=== PATIENT | female | born 1950 | race Caucasian/White ===

== ENCOUNTER 2017-07-14 08:45 | Inpatient (IN) | payer MEDICARE ==
--- NOTE | 2017-07-14 09:09 | RAD ---
PORTABLE CHEST 1 VIEW: Date: 07/14/17 Time: 0906 hours HISTORY: Shortness of breath. FINDINGS: Comparison made with exam of 07/12/17. The heart size is normal. The lungs are expanded without focal areas of consolidation, pneumothorax, or pleural effusions. IMPRESSION: No radiographic evidence of acute cardiopulmonary process. POS: [facility]
[2017-07-14] MEDS ORDERED: methylPREDNISolone Sod Succ/PF 125 MG/2 ML VIAL ONE (09:15)
[2017-07-14 09:27] LABS: #Basophils 0.1 thou/uL (0.0-0.2); #Monocytes 0.6 thou/uL (0.11-0.59); #Neutrophils 7.4 thou/uL (1.40-6.50); %Basophils 0.7 % (0.0-1.0); %Eosinophils 0.4 % (0.0-10.0); %Lymphocytes 10.5 % (21.0-51.0); %Monocytes 6.9 % (0.0-10.0); %Neutrophils 81.3 % (42.0-75.0); Hemoglobin 14.8 g/dL (12.0-16.0); Mean Corpuscular HGB CONC 32.3 g/dL (32.0-36.0); Mean Corpuscular Hemoglobin 29.2 pg (27.0-31.0); Mean Corpuscular Volume 90.4 fl (81.0-99.0); Mean Platelet Volume 9.1 fL (7.4-10.4); Platelet Count 141 thou/uL (130-400); Red Blood Cell (RBC) Count 5.08 mill/uL (4.20-5.40); White Blood Cell (WBC) Count 9.1 thou/uL (4.8-10.8)
[2017-07-14 09:29] LABS: ALT (SGPT) 29 U/L (8-55); AST (SGOT) 14 U/L (5-34); Albumin 3.8 g/dL (3.4-4.8); Alkaline Phosphatase 48 U/L (40-150); Anion Gap 14 mmol/L (10-20); BUN (Urea Nitrogen) 14 mg/dL (9.8-20.1); Bilirubin, Total 0.5 mg/dL (0.2-1.2); CK (CPK) 57 U/L (29-168); CKMB 1.5 ng/mL (0-6.6); Calc. Creatinine Clearance 0 mL/min (70-130); Calcium 9.7 mg/dL (7.8-10.44); Carbon Dioxide 27 mmol/L (23-31); Chloride 105 mmol/L (98-107); Estimated GFR-MDRD 77; Globulin 2.5 g/dL (2.4-3.5); Glucose 107 mg/dL (80-115); Lipase 19 U/L (8-78); Potassium 3.7 mmol/L (3.5-5.1); Protein, Total 6.3 g/dL (6.0-8.3); Sodium 142 mmol/L (136-145)
[2017-07-14] MEDS ORDERED: Ipratropium Bromide 2.5 ml Neb NEB PRN (15:07)
[2017-07-14] MEDS ORDERED: Ondansetron ODT 4 MG TAB PO PRN (15:08)
[2017-07-14] MEDS ORDERED: Acetaminophen 325 MG TAB PO PRN (15:08)
[2017-07-14] MEDS ORDERED: Ondansetron HCl/PF 4 MG/2 ML Vial IVP PRN (15:08)
[2017-07-14] MEDS ORDERED: HYDROcodone/Acetaminophen 5/325 mg Tablet PO PRN (15:08)
[2017-07-14] MEDS ORDERED: Guaifenesin DM 100-10/5 ML UDCUP PO PRN (15:08)
[2017-07-14] MEDS ORDERED: Albuterol Sulfate 2.5 mg/3 ml Neb NEB PRN (16:25)
[2017-07-14 16:26] VITALS: BMI 31.5
[2017-07-14] MEDS ORDERED: cefTRIAXone\\ROCEPHIN 1 GM in Sodium Chloride 0.9% 100 ML IVPB SCH (16:30)
[2017-07-14] MEDS: cefTRIAXone\\ROCEPHIN 1 GM, Syringe 0.4 ML in Sterile Water 9.6 ML SLOW IVP SCH (17:38)
--- NOTE | 2017-07-14 18:09 | HP ---
PRESENTING COMPLAINT: Shortness of breath. HISTORY OF PRESENT ILLNESS: Ms. Sarah Heard is a 67-year-old female with a past medical history of 3 myocardial infarctions (last in 2008), CAD status post stents and hypertension. Also, possibly clini chito undiagnosed chronic obstructive pulmonary disease who presents to the emergency room with giovanni sykes of being unwell for the past month with cough, shortness of breath, and intermittent fevers. She reports she has been short of breath for the past month and used her home Symbicort, without success . She was seen by her primary care physician who prescribed initially 250 mg of Levaquin and then af terwards 750 mg of Levaquin. She finished her dose about 2 days ago. About 3 days ago, she reports that her symptoms worsened. She had low grade fevers and worsening shortness of breath with nonprodu ctive sputum. She has no nausea, vomiting or diarrhea. She has no chest pain, no palpitations, PND, orthopnea or lower extremity edema. She has no urinary symptoms. At the emergency room, she was in obvious respiratory difficulty, but speaking in full sentences. Her labs showed normal CBC and CMP. Lactic acid was not elevated. BNP was 50. Troponin x1 was 0.020. Her chest x-ray showed no radio graphic evidence of acute cardiopulmonary process. She was started on nebulizer treatments, given on e dose of methylprednisolone and ceftriaxone; however, she did not respond to the therapy, so kiah osborne was made to admit for further management. PAST MEDICAL HISTORY: Myocardial infarction, 3 episodes last in 2008; CAD, status post stents and hy pertension. PAST SURGICAL HISTORY: None. FAMILY HISTORY: Her brother and father had asthma. Her mother and grandmother had myocardial infarc tions. SOCIAL HISTORY: She is a smoker and has smoked for decades. She is a recovering alcoholic as well ( last drink was about 3 years ago). ALLERGIES: None. PRIMARY CARE PHYSICIAN: Mariela (in [place]). REVIEW OF SYSTEMS: General: Positive for low grade fever. Negative for headaches, weakness. Eyes: No changes in vision. HEENT: Denies ear pain or discharge, congestion or drainage. Cardiac: Den ies chest pain. Positive for shortness of breath. Denies PND, orthopnea. Respiratory: Per HPI. G astrointestinal: Negative. Genitourinary: Negative. Musculoskeletal: Negative. Psychiatric: Ne gative. Neurologic: Negative. Skin: Negative. Allergy/Immunology: Negative. Hematology: Denie s easy bruising. PHYSICAL EXAMINATION: VITAL SIGNS: Within normal limits. GENERAL: In mild respiratory distress, but speaking in full sentences. HEENT: PERRLA, EOMI not pale, anicteric, normocephalic and atraumatic. NECK: Supple, with full range of movement. CHEST: Vesicular breath sounds with bilateral wheezing. CARDIOVASCULAR: Regular rate and rhythm. S1 and S2 only. No murmurs, rubs or gallops. ABDOMEN: Soft, not tender and not distended. Bowel sounds present. No organomegaly. EXTREMITIES: Moves all extremities spontaneously. No edema. SKIN: Warm, dry and well perfused. NEUROLOGIC: Alert and well oriented. No focal deficits. LABORATORY DATA: As stated in HPI. IMAGING DATA: As stated in HPI. ASSESSMENT AND PLAN: 1. Chronic obstructive pulmonary disease exacerbation. Patient is not clinically diagnosed with chr onic obstructive pulmonary disease as she has not had a pulmonary function test, but due to her chron ic smoking history and exacerbations, it is fair to state the patient has chronic obstructive pulmona ry disease exacerbation. She has been started on nebulizer treatments, which will be made, scheduled on p.r.n. She has also been started on IV ceftriaxone and azithromycin, oxygen supplementation, and IV Solu-Medrol. We will monitor her vital signs closely and reassess in the morning. Of note, she is not on oxygen supplementation as outpatient. 2. Hypertension. Blood pressure is currently at goal. She will be started on her medications as so on as they are verified. 3. Coronary artery disease, status post stents, stable, chest pain free. We will resume home medica tions once confirmed and verified. 4. Tobacco abuse. The patient has a chronic history of tobacco use. She has been counseled on the importance of smoking cessation during her chronic obstructive pulmonary disease exacerbations.
[2017-07-14] MEDS: Heparin 5,000 UNITS/ML VIAL SC SCH (20:09)
[2017-07-14] MEDS: Docusate 100 MG CAP PO SCH (20:10)
[2017-07-15 05:47] LABS: Anion Gap 11 mmol/L (10-20); BUN (Urea Nitrogen) 14 mg/dL (9.8-20.1); Calc. Creatinine Clearance 104 mL/min (70-130); Calcium 9.5 mg/dL (7.8-10.44); Carbon Dioxide 29 mmol/L (23-31); Chloride 104 mmol/L (98-107); Estimated GFR-MDRD 87; Glucose 131 mg/dL (80-115); Potassium 4.2 mmol/L (3.5-5.1); Sodium 140 mmol/L (136-145)
[2017-07-15 06:28] LABS: #Lymphocytes 0.7 thou/uL (1.20-3.40); #Monocytes 0.3 thou/uL (0.11-0.59); #Neutrophils 7.5 thou/uL (1.40-6.50); %Lymphocytes 8.2 % (21.0-51.0); %Neutrophils 88.7 % (42.0-75.0); Hemoglobin 14.8 g/dL (12.0-16.0); Lymphocytes 12 % (21-51); MDiff Complete? YES; Mean Corpuscular HGB CONC 33.1 g/dL (32.0-36.0); Mean Corpuscular Hemoglobin 31.7 pg (27.0-31.0); Mean Corpuscular Volume 95.7 fl (81.0-99.0); Mean Platelet Volume 9.7 fL (7.4-10.4); Monocytes 6 % (0-10); Neutrophil 82 % (42-75); PLT Morphology Comment Appears Adequate; Platelet Count 142 thou/uL (130-400); RBC Distribution Width 14.9 % (11.5-14.5); Red Blood Cell (RBC) Count 4.67 mill/uL (4.20-5.40); White Blood Cell (WBC) Count 8.5 thou/uL (4.8-10.8)
[2017-07-15] MEDS: Azithromycin 250 MG TAB PO SCH (08:19)
[2017-07-15] MEDS: Heparin 5,000 UNITS/ML VIAL SC SCH ×3 (08:23→20:04)
[2017-07-15] MEDS: Docusate 100 MG CAP PO SCH ×2 (08:23→20:04)
[2017-07-15] MEDS ORDERED: Loratadine 10 MG TAB PO PRN (08:33)
[2017-07-15] MEDS ORDERED: Mag-Al 1200 mg/1200 mg/30 ML UDCUP PO PRN (08:33)
[2017-07-15] MEDS ORDERED: hydrALAZINE 20 MG/ML VIAL SLOW IVP PRN (08:33)
[2017-07-15] MEDS ORDERED: Chloraseptic Spray 180 ml Bottle PO PRN (08:33)
[2017-07-15] MEDS ORDERED: Diabetic Tussin 200 MG/10 ML UDCUP PO PRN (08:33)
[2017-07-15] MEDS ORDERED: Milk Of Magnesia 30 ML UDCUP PO PRN (08:33)
[2017-07-15] MEDS: Aspirin 325 mg Enteric Coated Tablet PO SCH (11:36)
[2017-07-15] MEDS: Famotidine 20 MG TAB PO SCH ×2 (11:36→20:03)
[2017-07-15] MEDS: Calcium Carbonate + Vit D 1 TAB PO SCH (11:36)
[2017-07-15] MEDS: Furosemide 20 MG TAB PO SCH (11:36)
[2017-07-15] MEDS: Clopidogrel Bisulfate 75 MG TAB PO SCH (11:37)
[2017-07-15] MEDS: guaiFENesin ER 600 MG TAB PO SCH ×2 (11:37→20:04)
--- NOTE | 2017-07-15 11:47 | PDOC.PN ---
- Subjective Encounter Start Date: 07/15/17 Encounter Start Time: 10:40 -: old records requested/rev pt has cough, no fever, still has dyspnea and wheezing - Objective Resuscitation Status: Resuscitation Status FULL:Full Resuscitation MAR Reviewed: Yes Vital Signs & Weight: Vital Signs (12 hours) Temp Pulse Resp BP Pulse Ox 07/15/17 11:07 91 L 07/15/17 11:04 79 20 91 L 07/15/17 08:00 98.1 F 76 16 92 L 07/15/17 07:35 98.1 F 76 16 113/73 92 L 07/15/17 04:00 98.6 F 76 18 120/67 94 L 07/15/17 03:12 93 L 07/15/17 00:00 98.6 F 80 18 94/56 L 93 L Weight Weight 178 lb Result Diagrams: 07/15/17 04:51 07/15/17 04:51 Radiology Reviewed by me: Yes Phys Exam - Physical Examination Constitutional: NAD HEENT: PERRLA, moist MMs, sclera anicteric Neck: no JVD, supple Respiratory: no rales Cardiovascular: RRR, no significant murmur, no rub Gastrointestinal: soft, non-tender, no distention, positive bowel sounds Musculoskeletal: no edema, pulses present Neurological: non-focal, normal sensation, moves all 4 limbs Psychiatric: normal affect, A&O x 3 Skin: no rash, normal turgor Dx/Plan (1) COPD exacerbation Code(s): J44.1 - CHRONIC OBSTRUCTIVE PULMONARY DISEASE W (ACUTE) EXACERBATION Status: Acute (2) CAD (coronary artery disease) Code(s): I25.10 - ATHSCL HEART DISEASE OF [place] CORONARY ARTERY W/O ANG PCTRS Status: Chronic (3) Hypertension Code(s): I10 - ESSENTIAL (PRIMARY) HYPERTENSION Status: Chronic (4) Obesity (BMI 30.0-34.9) Code(s): E66.9 - OBESITY, UNSPECIFIED Status: Chronic (5) Tobacco abuse Code(s): Z72.0 - TOBACCO USE Status: Chronic - Plan cont current plan of care, continue antibiotics, respiratory therapy * continue solumedrol, duoneb, dulera and mucinex * restart selected home medication * currently on optimum medical therapy * counselled to avoid smoking * medication reviewed as below * symptomatic treatment * will monitor in hospital. Review of Systems - Review of Systems Constitutional: negative: fever, chills, sweats, weakness, malaise, other Eyes: negative: Pain, Vision Change, Conjunctivae Inflammation, Eyelid Inflammation, Redness, Other ENT: negative: Ear Pain, Ear Discharge, Nose Pain, Nose Discharge, Nose Congestion, Mouth Pain, Mouth Swelling, Throat Pain, Throat Swelling, Other Respiratory: Cough, Shortness of Breath, SOB with Excertion, Wheezing. negative : Dry, Hemoptysis, Pleuritic Pain, Sputum Cardiovascular: negative: chest pain, palpitations, orthopnea, paroxysmal nocturnal dyspnea, edema, light headedness, other Gastrointestinal: negative: Nausea, Vomiting, Abdominal Pain, Diarrhea, Constipation, Melena, Hematochezia, Other Genitourinary: negative: Dysuria, Frequency, Incontinence, Hematuria, Retention , Other Musculoskeletal: negative: Neck Pain, Shoulder Pain, Arm Pain, Back Pain, Hand Pain, Leg Pain, Foot Pain, Other Skin: negative: Rash, Lesions, Sascha, Bruising, Other - Medications/Allergies Allergies/Adverse Reactions: Allergies Allergy/AdvReac Type Severity Reaction Status Date / Time No Known Allergies Allergy Verified 07/14/17 16:28 Medications: Current Medications Acetaminophen (Tylenol) 650 mg PO Q4H PRN PRN Reason: Headache/Fever or Pain Hydrocodone Bitart/Acetaminophen ([place] 5/325) 1 tab PO Q4H PRN PRN Reason: Moderate Pain (4-6) Al Hydroxide/Mg Hydroxide (Maalox) 15 ml PO Q4H PRN PRN Reason: Heartburn or Indigestion Albuterol Sulfate (Ventolin) 2.5 mg NEB [id number] PRN PRN Reason: SOB &/or Wheezing Albuterol/Ipratropium (Duoneb) 3 ml NEB [id number] SCH Last Admin: 07/15/17 11:04 Dose: 3 ml Aspirin (Ecotrin) 325 mg PO DAILY [facility] Last Admin: 07/15/17 11:36 Dose: Not Given Atorvastatin Calcium (Lipitor) 80 mg PO [facility] Azithromycin (Zithromax) 500 mg PO DAILY [facility] Last Admin: 07/15/17 08:19 Dose: 500 mg Calcium/Vitamin D (Caltrate 600 + Vit D) 1 tab PO DAILY [facility] Last Admin: 07/15/17 11:36 Dose: 1 tab Clopidogrel Bisulfate (Plavix) 75 mg PO DAILY [facility] Last Admin: 07/15/17 11:37 Dose: Not Given Docusate Sodium (Colace) 100 mg PO BID [facility] Last Admin: 07/15/17 08:23 Dose: Not Given Famotidine (Pepcid) 20 mg PO BID [facility] Last Admin: 07/15/17 11:36 Dose: 20 mg Furosemide (Lasix) 20 mg PO DAILY [facility] Last Admin: 07/15/17 11:36 Dose: Not Given Guaifenesin (Robitussin Sf) 200 mg PO Q4H PRN PRN Reason: Cough Guaifenesin (Mucinex) 600 mg PO Q12HR [facility] Last Admin: 07/15/17 11:37 Dose: 600 mg Guaifenesin/Dextromethorphan (Robitussin Dm) 15 ml PO Q4H PRN PRN Reason: Cough Heparin Sodium (Porcine) (Heparin) 5,000 units SC TID [facility] Last Admin: 07/15/17 08:23 Dose: Not Given Hydralazine HCl (Apresoline) 10 mg SLOW IVP Q4H PRN PRN Reason: Systolic BP > 180 Ceftriaxone Sodium 1 gm/ (Syringe 0.4 ml/ Sterile Water) 10 mls @ 120 mls/hr SLOW IVP 1800 [facility] Last Admin: 07/14/17 17:38 Dose: 10 mls Ipratropium [place] (Atrovent) 2.5 ml NEB [id number] PRN PRN Reason: SOB &/or Wheezing Loratadine (Claritin) 10 mg PO DAILYPRN PRN PRN Reason: Sinus Symptoms Magnesium Hydroxide (Milk Of Magnesium) 30 ml PO DAILYPRN PRN PRN Reason: Constipation Methylprednisolone Sodium Succinate (Solu-Medrol) 40 mg IVP Q6HR [facility] Last Admin: 07/15/17 11:36 Dose: 40 mg Mometasone Furoate/Formoterol Fumar (Dulera 200 Mcg/5 Mcg Inhaler) 2 puff INH BID-RT [facility] Ondansetron HCl (Zofran Odt) 4 mg PO Q6H PRN PRN Reason: Nausea/Vomiting Ondansetron HCl (Zofran) 4 mg IVP Q6H PRN PRN Reason: Nausea/Vomiting Phenol (Chloraseptic [place] 180 Ml Bot) 0 ml PO PRN PRN PRN Reason: Sore Throat Sodium Chloride ([place] Nasal [place] 0.65%) 0 ml EA NARE QIDPRN PRN PRN Reason: Nasal Congestion
[2017-07-15] MEDS: cefTRIAXone\\ROCEPHIN 1 GM, Syringe 0.4 ML in Sterile Water 9.6 ML SLOW IVP SCH (18:33)
[2017-07-15] MEDS: Atorvastatin Calcium 40 MG TAB PO SCH (20:03)
[2017-07-15] MEDS: Mometasone/Formoterol 120 PUFF INHALER INH SCH (20:32)
[2017-07-16 05:03] LABS: #Lymphocytes 0.8 thou/uL (1.20-3.40); #Monocytes 0.3 thou/uL (0.11-0.59); #Neutrophils 7.4 thou/uL (1.40-6.50); %Eosinophils 0.1 % (0.0-10.0); %Lymphocytes 9.1 % (21.0-51.0); %Monocytes 3.8 % (0.0-10.0); %Neutrophils 87.1 % (42.0-75.0); Hemoglobin 14.3 g/dL (12.0-16.0); Mean Corpuscular HGB CONC 32.6 g/dL (32.0-36.0); Mean Corpuscular Hemoglobin 31.6 pg (27.0-31.0); Mean Corpuscular Volume 96.7 fl (81.0-99.0); Mean Platelet Volume 9.5 fL (7.4-10.4); Platelet Count 150 thou/uL (130-400); Red Blood Cell (RBC) Count 4.53 mill/uL (4.20-5.40); White Blood Cell (WBC) Count 8.5 thou/uL (4.8-10.8)
[2017-07-16 05:20] LABS: Anion Gap 12 mmol/L (10-20); BUN (Urea Nitrogen) 21 mg/dL (9.8-20.1); Calc. Creatinine Clearance 92 mL/min (70-130); Calcium 9.6 mg/dL (7.8-10.44); Carbon Dioxide 31 mmol/L (23-31); Chloride 103 mmol/L (98-107); Estimated GFR-MDRD 75; Glucose 137 mg/dL (80-115); Potassium 5.5 mmol/L (3.5-5.1); Sodium 140 mmol/L (136-145)
[2017-07-16] MEDS: Mometasone/Formoterol 120 PUFF INHALER INH SCH ×2 (07:28→18:14)
[2017-07-16] MEDS: Clopidogrel Bisulfate 75 MG TAB PO SCH (09:39)
[2017-07-16] MEDS: Famotidine 20 MG TAB PO SCH ×2 (09:40→20:00)
[2017-07-16] MEDS: guaiFENesin ER 600 MG TAB PO SCH ×2 (09:40→20:00)
[2017-07-16] MEDS: Calcium Carbonate + Vit D 1 TAB PO SCH (09:40)
[2017-07-16] MEDS: Aspirin 325 mg Enteric Coated Tablet PO SCH (09:40)
[2017-07-16] MEDS: Azithromycin 250 MG TAB PO SCH (09:40)
[2017-07-16] MEDS: Heparin 5,000 UNITS/ML VIAL SC SCH ×2 (09:41→20:00)
[2017-07-16] MEDS: Furosemide 20 MG TAB PO SCH (09:41)
[2017-07-16] MEDS: Docusate 100 MG CAP PO SCH ×2 (09:41→20:00)
--- NOTE | 2017-07-16 11:14 | PDOC.PN ---
- Subjective Encounter Start Date: 07/16/17 Encounter Start Time: 08:50 Patient seen and examined. No new complaints. No overnight events today she feels better, no wheezing - Objective Resuscitation Status: Resuscitation Status FULL:Full Resuscitation MAR Reviewed: Yes Vital Signs & Weight: Vital Signs (12 hours) Temp Pulse Resp BP Pulse Ox 07/16/17 10:13 88 L 07/16/17 10:11 73 20 88 L 07/16/17 08:00 96.9 F L 61 16 105/65 96 07/16/17 07:43 98.5 F 66 20 96 07/16/17 07:32 94 L 07/16/17 07:29 66 20 94 L 07/16/17 01:23 95 Weight Weight 178 lb Result Diagrams: 07/16/17 03:40 07/16/17 03:40 Phys Exam - Physical Examination Constitutional: NAD HEENT: PERRLA, moist MMs, sclera anicteric Neck: no JVD, supple Respiratory: no wheezing, no rales, no rhonchi air entry improving Cardiovascular: RRR, no significant murmur, no rub Gastrointestinal: soft, non-tender, no distention, positive bowel sounds Musculoskeletal: no edema, pulses present Neurological: non-focal, normal sensation, moves all 4 limbs Psychiatric: normal affect, A&O x 3 Skin: no rash, normal turgor Dx/Plan (1) COPD exacerbation Code(s): J44.1 - CHRONIC OBSTRUCTIVE PULMONARY DISEASE W (ACUTE) EXACERBATION Status: Acute (2) CAD (coronary artery disease) Code(s): I25.10 - ATHSCL HEART DISEASE OF [place] CORONARY ARTERY W/O ANG PCTRS Status: Chronic (3) Hypertension Code(s): I10 - ESSENTIAL (PRIMARY) HYPERTENSION Status: Chronic (4) Obesity (BMI 30.0-34.9) Code(s): E66.9 - OBESITY, UNSPECIFIED Status: Chronic (5) Tobacco abuse Code(s): Z72.0 - TOBACCO USE Status: Chronic - Plan cont current plan of care * medication reviewed as below * symptomatic treatment * expecting she will be ready for discharge by tomorrow * continue current optimum medical therapy for now. Review of Systems - Review of Systems Constitutional: negative: fever, chills, sweats, weakness, malaise, other Eyes: negative: Pain, Vision Change, Conjunctivae Inflammation, Eyelid Inflammation, Redness, Other ENT: negative: Ear Pain, Ear Discharge, Nose Pain, Nose Discharge, Nose Congestion, Mouth Pain, Mouth Swelling, Throat Pain, Throat Swelling, Other Respiratory: Cough, Shortness of Breath. negative: Dry, Hemoptysis, SOB with Excertion, Pleuritic Pain, Sputum, Wheezing Cardiovascular: negative: chest pain, palpitations, orthopnea, paroxysmal nocturnal dyspnea, edema, light headedness, other Gastrointestinal: negative: Nausea, Vomiting, Abdominal Pain, Diarrhea, Constipation, Melena, Hematochezia, Other Genitourinary: negative: Dysuria, Frequency, Incontinence, Hematuria, Retention , Other Musculoskeletal: negative: Neck Pain, Shoulder Pain, Arm Pain, Back Pain, Hand Pain, Leg Pain, Foot Pain, Other Skin: negative: Rash, Lesions, Sascha, Bruising, Other - Medications/Allergies Allergies/Adverse Reactions: Allergies Allergy/AdvReac Type Severity Reaction Status Date / Time No Known Allergies Allergy Verified 07/14/17 16:28 Medications: Current Medications Acetaminophen (Tylenol) 650 mg PO Q4H PRN PRN Reason: Headache/Fever or Pain Hydrocodone Bitart/Acetaminophen ([place] 5/325) 1 tab PO Q4H PRN PRN Reason: Moderate Pain (4-6) Al Hydroxide/Mg Hydroxide (Maalox) 15 ml PO Q4H PRN PRN Reason: Heartburn or Indigestion Albuterol Sulfate (Ventolin) 2.5 mg NEB [id number] PRN PRN Reason: SOB &/or Wheezing Albuterol/Ipratropium (Duoneb) 3 ml NEB [id number] SCH Last Admin: 07/16/17 10:11 Dose: 3 ml Aspirin (Ecotrin) 325 mg PO DAILY [facility] Last Admin: 07/16/17 09:40 Dose: 325 mg Atorvastatin Calcium (Lipitor) 80 mg PO HS [facility] Last Admin: 07/15/17 20:03 Dose: Not Given Azithromycin (Zithromax) 500 mg PO DAILY [facility] Last Admin: 07/16/17 09:40 Dose: 500 mg Calcium/Vitamin D (Caltrate 600 + Vit D) 1 tab PO DAILY [facility] Last Admin: 07/16/17 09:40 Dose: 1 tab Clopidogrel Bisulfate (Plavix) 75 mg PO DAILY [facility] Last Admin: 07/16/17 09:39 Dose: 75 mg Docusate Sodium (Colace) 100 mg PO BID [facility] Last Admin: 07/16/17 09:41 Dose: Not Given Famotidine (Pepcid) 20 mg PO BID [facility] Last Admin: 07/16/17 09:40 Dose: 20 mg Furosemide (Lasix) 20 mg PO DAILY [facility] Last Admin: 07/16/17 09:41 Dose: 20 mg Guaifenesin (Robitussin Sf) 200 mg PO Q4H PRN PRN Reason: Cough Guaifenesin (Mucinex) 600 mg PO Q12HR [facility] Last Admin: 07/16/17 09:40 Dose: 600 mg Guaifenesin/Dextromethorphan (Robitussin Dm) 15 ml PO Q4H PRN PRN Reason: Cough Heparin Sodium (Porcine) (Heparin) 5,000 units SC BID [facility] Last Admin: 07/16/17 09:41 Dose: Not Given Hydralazine HCl (Apresoline) 10 mg SLOW IVP Q4H PRN PRN Reason: Systolic BP > 180 Ceftriaxone Sodium 1 gm/ (Syringe 0.4 ml/ Sterile Water) 10 mls @ 120 mls/hr SLOW IVP 1800 [facility] Last Admin: 07/15/17 18:33 Dose: 10 mls Ipratropium [place] (Atrovent) 2.5 ml NEB [id number] PRN PRN Reason: SOB &/or Wheezing Loratadine (Claritin) 10 mg PO DAILYPRN PRN PRN Reason: Sinus Symptoms Magnesium Hydroxide (Milk Of Magnesium) 30 ml PO DAILYPRN PRN PRN Reason: Constipation Methylprednisolone Sodium Succinate (Solu-Medrol) 40 mg IVP Q6HR [facility] Last Admin: 07/16/17 05:59 Dose: 40 mg Mometasone Furoate/Formoterol Fumar (Dulera 200 Mcg/5 Mcg Inhaler) 2 puff INH BID-RT [facility] Last Admin: 07/16/17 07:28 Dose: 2 puff Ondansetron HCl (Zofran Odt) 4 mg PO Q6H PRN PRN Reason: Nausea/Vomiting Ondansetron HCl (Zofran) 4 mg IVP Q6H PRN PRN Reason: Nausea/Vomiting Phenol (Chloraseptic [place] 180 Ml Bot) 0 ml PO PRN PRN PRN Reason: Sore Throat Sodium Chloride ([place] Nasal [place] 0.65%) 0 ml EA NARE QIDPRN PRN PRN Reason: Nasal Congestion
[2017-07-16] MEDS: cefTRIAXone\\ROCEPHIN 1 GM, Syringe 0.4 ML in Sterile Water 9.6 ML SLOW IVP SCH (17:41)
[2017-07-16] MEDS: Atorvastatin Calcium 40 MG TAB PO SCH (20:00)
[2017-07-16] MEDS: Sodium Chloride 0.65% Nasal 44 ML BOT EA NARE PRN (23:20)
[2017-07-17 05:25] LABS: Anion Gap 12 mmol/L (10-20); BUN (Urea Nitrogen) 26 mg/dL (9.8-20.1); Calc. Creatinine Clearance 98 mL/min (70-130); Calcium 9.1 mg/dL (7.8-10.44); Carbon Dioxide 29 mmol/L (23-31); Chloride 104 mmol/L (98-107); Estimated GFR-MDRD 81; Glucose 159 mg/dL (80-115); Potassium 4.3 mmol/L (3.5-5.1); Sodium 141 mmol/L (136-145)
[2017-07-17] MEDS: Mometasone/Formoterol 120 PUFF INHALER INH SCH ×2 (07:20→18:43)
[2017-07-17] MEDS: guaiFENesin ER 600 MG TAB PO SCH ×2 (09:10→20:07)
[2017-07-17] MEDS: Calcium Carbonate + Vit D 1 TAB PO SCH (09:10)
[2017-07-17] MEDS: Furosemide 20 MG TAB PO SCH (09:10)
[2017-07-17] MEDS: Clopidogrel Bisulfate 75 MG TAB PO SCH (09:10)
[2017-07-17] MEDS: Azithromycin 250 MG TAB PO SCH (09:10)
[2017-07-17] MEDS: Famotidine 20 MG TAB PO SCH ×2 (09:10→20:08)
[2017-07-17] MEDS: Aspirin 325 mg Enteric Coated Tablet PO SCH (09:10)
[2017-07-17] MEDS: Heparin 5,000 UNITS/ML VIAL SC SCH ×2 (09:11→20:06)
[2017-07-17] MEDS: Docusate 100 MG CAP PO SCH ×2 (09:11→20:07)
[2017-07-17] MEDS: Sodium Chloride 0.65% Nasal 44 ML BOT EA NARE PRN (09:13)
--- NOTE | 2017-07-17 10:39 | PDOC.PN ---
- Subjective Encounter Start Date: 07/17/17 Encounter Start Time: 08:40 pt feels nasal congestion and nasal bleeding, still has cough but she feels OK, she still on oxygen - Objective Resuscitation Status: Resuscitation Status FULL:Full Resuscitation MAR Reviewed: Yes Vital Signs & Weight: Vital Signs (12 hours) Temp Pulse Resp BP Pulse Ox 07/17/17 10:25 74 16 94 L 07/17/17 07:42 98.4 F 81 20 129/80 92 L 07/17/17 07:22 65 18 93 L 07/17/17 07:20 65 16 93 L 07/17/17 07:19 97.9 F 88 20 Weight Weight 178 lb I&O: 07/16/17 07/17/17 07/18/17 06:59 06:59 06:59 Intake Total 840 Balance 840 Result Diagrams: 07/16/17 03:40 07/17/17 03:47 Phys Exam - Physical Examination Constitutional: NAD HEENT: PERRLA, moist MMs, sclera anicteric Neck: no JVD, supple Respiratory: no wheezing, no rales, no rhonchi air entry improving Cardiovascular: RRR, no significant murmur, no rub Gastrointestinal: soft, non-tender, no distention, positive bowel sounds Musculoskeletal: no edema, pulses present Neurological: non-focal, normal sensation, moves all 4 limbs Psychiatric: normal affect, A&O x 3 Skin: no rash, normal turgor Dx/Plan (1) COPD exacerbation Code(s): J44.1 - CHRONIC OBSTRUCTIVE PULMONARY DISEASE W (ACUTE) EXACERBATION Status: Acute (2) CAD (coronary artery disease) Code(s): I25.10 - ATHSCL HEART DISEASE OF [place] CORONARY ARTERY W/O ANG PCTRS Status: Chronic (3) Hypertension Code(s): I10 - ESSENTIAL (PRIMARY) HYPERTENSION Status: Chronic (4) Obesity (BMI 30.0-34.9) Code(s): E66.9 - OBESITY, UNSPECIFIED Status: Chronic (5) Tobacco abuse Code(s): Z72.0 - TOBACCO USE Status: Chronic - Plan cont current plan of care, continue antibiotics, respiratory therapy * change oxygen to moisturized one * add flonase nasal spray bid * add [place] nasal spray * continue current respiratory therapy. * medication reviewed as below * symptomatic treatment * today will walk her for 4-5 minutes and then check oxygen level * slowly improving Review of Systems - Review of Systems Constitutional: negative: fever, chills, sweats, weakness, malaise, other ENT: Nose Congestion. negative: Ear Pain, Ear Discharge, Nose Pain, Nose Discharge, Mouth Pain, Mouth Swelling, Throat Pain, Throat Swelling, Other Respiratory: Cough. negative: Dry, Shortness of Breath, Hemoptysis, SOB with Excertion, Pleuritic Pain, Sputum, Wheezing Cardiovascular: negative: chest pain, palpitations, orthopnea, paroxysmal nocturnal dyspnea, edema, light headedness, other Gastrointestinal: negative: Nausea, Vomiting, Abdominal Pain, Diarrhea, Constipation, Melena, Hematochezia, Other Genitourinary: negative: Dysuria, Frequency, Incontinence, Hematuria, Retention , Other Musculoskeletal: negative: Neck Pain, Shoulder Pain, Arm Pain, Back Pain, Hand Pain, Leg Pain, Foot Pain, Other - Medications/Allergies Allergies/Adverse Reactions: Allergies Allergy/AdvReac Type Severity Reaction Status Date / Time No Known Allergies Allergy Verified 07/14/17 16:28 Medications: Current Medications Acetaminophen (Tylenol) 650 mg PO Q4H PRN PRN Reason: Headache/Fever or Pain Hydrocodone Bitart/Acetaminophen ([place] 5/325) 1 tab PO Q4H PRN PRN Reason: Moderate Pain (4-6) Al Hydroxide/Mg Hydroxide (Maalox) 15 ml PO Q4H PRN PRN Reason: Heartburn or Indigestion Albuterol Sulfate (Ventolin) 2.5 mg NEB [id number] PRN PRN Reason: SOB &/or Wheezing Albuterol/Ipratropium (Duoneb) 3 ml NEB [id number] SCH Last Admin: 07/17/17 10:25 Dose: 3 ml Aspirin (Ecotrin) 325 mg PO DAILY [facility] Last Admin: 07/17/17 09:10 Dose: 325 mg Atorvastatin Calcium (Lipitor) 80 mg PO HS [facility] Last Admin: 07/16/17 20:00 Dose: 80 mg Azithromycin (Zithromax) 500 mg PO DAILY [facility] Last Admin: 07/17/17 09:10 Dose: 500 mg Calcium/Vitamin D (Caltrate 600 + Vit D) 1 tab PO DAILY [facility] Last Admin: 07/17/17 09:10 Dose: 1 tab Clopidogrel Bisulfate (Plavix) 75 mg PO DAILY [facility] Last Admin: 07/17/17 09:10 Dose: 75 mg Docusate Sodium (Colace) 100 mg PO BID [facility] Last Admin: 07/17/17 09:11 Dose: Not Given Famotidine (Pepcid) 20 mg PO BID [facility] Last Admin: 07/17/17 09:10 Dose: 20 mg Fluticasone Propionate (Flonase Nasal [place]) 1 gm NASAL BID [facility] Furosemide (Lasix) 20 mg PO DAILY [facility] Last Admin: 07/17/17 09:10 Dose: 20 mg Guaifenesin (Robitussin Sf) 200 mg PO Q4H PRN PRN Reason: Cough Guaifenesin (Mucinex) 600 mg PO Q12HR [facility] Last Admin: 07/17/17 09:10 Dose: 600 mg Guaifenesin/Dextromethorphan (Robitussin Dm) 15 ml PO Q4H PRN PRN Reason: Cough Heparin Sodium (Porcine) (Heparin) 5,000 units SC BID [facility] Last Admin: 07/17/17 09:11 Dose: Not Given Hydralazine HCl (Apresoline) 10 mg SLOW IVP Q4H PRN PRN Reason: Systolic BP > 180 Ceftriaxone Sodium 1 gm/ (Syringe 0.4 ml/ Sterile Water) 10 mls @ 120 mls/hr SLOW IVP 1800 [facility] Last Admin: 07/16/17 17:41 Dose: 10 mls Ipratropium [place] (Atrovent) 2.5 ml NEB [id number] PRN PRN Reason: SOB &/or Wheezing Loratadine (Claritin) 10 mg PO DAILYPRN PRN PRN Reason: Sinus Symptoms Magnesium Hydroxide (Milk Of Magnesium) 30 ml PO DAILYPRN PRN PRN Reason: Constipation Methylprednisolone Sodium Succinate (Solu-Medrol) 40 mg IVP Q6HR [facility] Last Admin: 07/17/17 05:17 Dose: 40 mg Mometasone Furoate/Formoterol Fumar (Dulera 200 Mcg/5 Mcg Inhaler) 2 puff INH BID-RT [facility] Last Admin: 07/17/17 07:20 Dose: 2 puff Ondansetron HCl (Zofran Odt) 4 mg PO Q6H PRN PRN Reason: Nausea/Vomiting Ondansetron HCl (Zofran) 4 mg IVP Q6H PRN PRN Reason: Nausea/Vomiting Phenol (Chloraseptic [place] 180 Ml Bot) 0 ml PO PRN PRN PRN Reason: Sore Throat Sodium Chloride ([place] Nasal [place] 0.65%) 0 ml EA NARE QIDPRN PRN PRN Reason: Nasal Congestion Last Admin: 07/17/17 09:13 Dose: 1 spr
[2017-07-17] MEDS: cefTRIAXone\\ROCEPHIN 1 GM, Syringe 0.4 ML in Sterile Water 9.6 ML SLOW IVP SCH (18:23)
[2017-07-17] MEDS: Atorvastatin Calcium 40 MG TAB PO SCH (20:07)
[2017-07-17] MEDS: Fluticasone Propionate Nasal Spray 16 gm Bottle NASAL SCH (20:35)
[2017-07-18 05:03] LABS: Anion Gap 12 mmol/L (10-20); BUN (Urea Nitrogen) 20 mg/dL (9.8-20.1); Calc. Creatinine Clearance 84 mL/min (70-130); Carbon Dioxide 29 mmol/L (23-31); Chloride 105 mmol/L (98-107); Estimated GFR-MDRD 68; Glucose 135 mg/dL (80-115); Potassium 4.6 mmol/L (3.5-5.1); Sodium 141 mmol/L (136-145)
[2017-07-18] MEDS: Mometasone/Formoterol 120 PUFF INHALER INH SCH (07:26)
[2017-07-18] MEDS: Aspirin 325 mg Enteric Coated Tablet PO SCH (08:33)
[2017-07-18] MEDS: Azithromycin 250 MG TAB PO SCH (08:33)
[2017-07-18] MEDS: Clopidogrel Bisulfate 75 MG TAB PO SCH (08:33)
[2017-07-18] MEDS: Furosemide 20 MG TAB PO SCH (08:34)
[2017-07-18] MEDS: Heparin 5,000 UNITS/ML VIAL SC SCH (08:34)
[2017-07-18] MEDS: Calcium Carbonate + Vit D 1 TAB PO SCH (08:34)
[2017-07-18] MEDS: guaiFENesin ER 600 MG TAB PO SCH (08:34)
[2017-07-18] MEDS: Famotidine 20 MG TAB PO SCH (08:35)
[2017-07-18] MEDS: Docusate 100 MG CAP PO SCH (08:35)
[2017-07-18] MEDS: Fluticasone Propionate Nasal Spray 16 gm Bottle NASAL SCH (08:36)
--- NOTE | 2017-07-18 10:05 | PDOC.PN ---
- Subjective Encounter Start Date: 07/18/17 Encounter Start Time: 08:30 Patient seen and examined. No new complaints. No overnight events, her copd is under control today after walking few minutes her oxygen saturation dropped to below 88% - Objective Resuscitation Status: Resuscitation Status FULL:Full Resuscitation MAR Reviewed: Yes Vital Signs & Weight: Vital Signs (12 hours) Temp Pulse Resp BP BP Pulse Ox 07/18/17 08:00 97.6 F 72 16 96 07/18/17 07:32 97.6 F 72 16 148/80 H 96 07/18/17 07:26 65 16 94 L 07/18/17 07:24 75 16 94 L 07/18/17 06:00 97.8 F 72 18 121/77 97 07/18/17 01:00 97.6 F 93 20 143/87 H 91 L Weight Weight 178 lb I&O: 07/17/17 07/18/17 07/19/17 06:59 06:59 06:59 Intake Total 840 2040 240 Balance 840 2040 240 Result Diagrams: 07/16/17 03:40 07/18/17 04:04 Phys Exam - Physical Examination Constitutional: NAD HEENT: PERRLA, moist MMs, sclera anicteric Neck: no JVD, supple Respiratory: no wheezing, no rales, no rhonchi Cardiovascular: RRR, no significant murmur, no rub Gastrointestinal: soft, non-tender, no distention, positive bowel sounds Musculoskeletal: no edema, pulses present Neurological: non-focal, normal sensation, moves all 4 limbs Psychiatric: normal affect, A&O x 3 Skin: no rash, normal turgor Dx/Plan (1) Acute and chronic respiratory failure with hypoxia Code(s): J96.21 - ACUTE AND CHRONIC RESPIRATORY FAILURE WITH HYPOXIA Status: Acute (2) COPD exacerbation Code(s): J44.1 - CHRONIC OBSTRUCTIVE PULMONARY DISEASE W (ACUTE) EXACERBATION Status: Acute (3) CAD (coronary artery disease) Code(s): I25.10 - ATHSCL HEART DISEASE OF [place] CORONARY ARTERY W/O ANG PCTRS Status: Chronic (4) Hypertension Code(s): I10 - ESSENTIAL (PRIMARY) HYPERTENSION Status: Chronic (5) Obesity (BMI 30.0-34.9) Code(s): E66.9 - OBESITY, UNSPECIFIED Status: Chronic (6) Tobacco abuse Code(s): Z72.0 - TOBACCO USE Status: Chronic - Plan cont current plan of care, plan discussed w/ family, continue antibiotics, social media project manager, respiratory therapy * will need arrangement for home oxygen for her low spo2 <88% on room air * medication reviewed as below * symptomatic treatment * discussed with daughter * her copd under control * stable for discharge * see discharge toyin. Review of Systems - Review of Systems ENT: negative: Ear Pain, Ear Discharge, Nose Pain, Nose Discharge, Nose Congestion, Mouth Pain, Mouth Swelling, Throat Pain, Throat Swelling, Other Respiratory: negative: Cough, Dry, Shortness of Breath, Hemoptysis, SOB with Excertion, Pleuritic Pain, Sputum, Wheezing Cardiovascular: negative: chest pain, palpitations, orthopnea, paroxysmal nocturnal dyspnea, edema, light headedness, other Gastrointestinal: negative: Nausea, Vomiting, Abdominal Pain, Diarrhea, Constipation, Melena, Hematochezia, Other Genitourinary: negative: Dysuria, Frequency, Incontinence, Hematuria, Retention , Other Musculoskeletal: negative: Neck Pain, Shoulder Pain, Arm Pain, Back Pain, Hand Pain, Leg Pain, Foot Pain, Other Skin: negative: Rash, Lesions, Sascha, Bruising, Other - Medications/Allergies Allergies/Adverse Reactions: Allergies Allergy/AdvReac Type Severity Reaction Status Date / Time No Known Allergies Allergy Verified 07/14/17 16:28 Medications: Current Medications Acetaminophen (Tylenol) 650 mg PO Q4H PRN PRN Reason: Headache/Fever or Pain Hydrocodone Bitart/Acetaminophen ([place] 5/325) 1 tab PO Q4H PRN PRN Reason: Moderate Pain (4-6) Al Hydroxide/Mg Hydroxide (Maalox) 15 ml PO Q4H PRN PRN Reason: Heartburn or Indigestion Albuterol Sulfate (Ventolin) 2.5 mg NEB [id number] PRN PRN Reason: SOB &/or Wheezing Albuterol/Ipratropium (Duoneb) 3 ml NEB [id number] SCH Last Admin: 07/18/17 07:24 Dose: 3 ml Aspirin (Ecotrin) 325 mg PO DAILY [facility] Last Admin: 07/18/17 08:33 Dose: 325 mg Atorvastatin Calcium (Lipitor) 80 mg PO HS [facility] Last Admin: 07/17/17 20:07 Dose: 80 mg Azithromycin (Zithromax) 500 mg PO DAILY [facility] Last Admin: 07/18/17 08:33 Dose: 500 mg Calcium/Vitamin D (Caltrate 600 + Vit D) 1 tab PO DAILY [facility] Last Admin: 07/18/17 08:34 Dose: 1 tab Clopidogrel Bisulfate (Plavix) 75 mg PO DAILY [facility] Last Admin: 07/18/17 08:33 Dose: 75 mg Docusate Sodium (Colace) 100 mg PO BID [facility] Last Admin: 07/18/17 08:35 Dose: Not Given Famotidine (Pepcid) 20 mg PO BID [facility] Last Admin: 07/18/17 08:35 Dose: 20 mg Fluticasone Propionate (Flonase Nasal [place]) 1 gm NASAL BID [facility] Last Admin: 07/18/17 08:36 Dose: 1 spray Furosemide (Lasix) 20 mg PO DAILY [facility] Last Admin: 07/18/17 08:34 Dose: 20 mg Guaifenesin (Robitussin Sf) 200 mg PO Q4H PRN PRN Reason: Cough Guaifenesin (Mucinex) 600 mg PO Q12HR [facility] Last Admin: 07/18/17 08:34 Dose: 600 mg Guaifenesin/Dextromethorphan (Robitussin Dm) 15 ml PO Q4H PRN PRN Reason: Cough Heparin Sodium (Porcine) (Heparin) 5,000 units SC BID [facility] Last Admin: 07/18/17 08:34 Dose: Not Given Hydralazine HCl (Apresoline) 10 mg SLOW IVP Q4H PRN PRN Reason: Systolic BP > 180 Ceftriaxone Sodium 1 gm/ (Syringe 0.4 ml/ Sterile Water) 10 mls @ 120 mls/hr SLOW IVP 1800 [facility] Last Admin: 07/17/17 18:23 Dose: 10 mls Ipratropium [place] (Atrovent) 2.5 ml NEB [id number] PRN PRN Reason: SOB &/or Wheezing Loratadine (Claritin) 10 mg PO DAILYPRN PRN PRN Reason: Sinus Symptoms Magnesium Hydroxide (Milk Of Magnesium) 30 ml PO DAILYPRN PRN PRN Reason: Constipation Methylprednisolone Sodium Succinate (Solu-Medrol) 40 mg IVP Q6HR [facility] Last Admin: 07/18/17 05:44 Dose: 40 mg Mometasone Furoate/Formoterol Fumar (Dulera 200 Mcg/5 Mcg Inhaler) 2 puff INH BID-RT WEN Last Admin: 07/18/17 07:26 Dose: 2 puff Ondansetron HCl (Zofran Odt) 4 mg PO Q6H PRN PRN Reason: Nausea/Vomiting Ondansetron HCl (Zofran) 4 mg IVP Q6H PRN PRN Reason: Nausea/Vomiting Phenol (Chloraseptic [place] 180 Ml Bot) 0 ml PO PRN PRN PRN Reason: Sore Throat Sodium Chloride ([place] Nasal [place] 0.65%) 0 ml EA NARE QIDPRN PRN PRN Reason: Nasal Congestion Last Admin: 07/17/17 09:13 Dose: 1 spr
--- NOTE | 2017-07-18 11:05 | DIS ---
DATE OF ADMISSION: 07/14/2017 DATE OF DISCHARGE: 07/18/2017 PRIMARY CARE PHYSICIAN: [facility] call admission. DISCHARGE DISPOSITION: Home. PRIMARY DISCHARGE DIAGNOSES: 1. Acute and chronic hypoxic respiratory failure. 2. Chronic obstructive pulmonary disease exacerbation, sinusitis. SECONDARY DISCHARGE DIAGNOSES: Tobacco abuse disorder, obesity with body mass index 31, hypertension , coronary artery disease, chronic obstructive pulmonary disease. PRIMARY PROCEDURE/OPERATION: None. RADIOLOGICAL INVESTIGATION: Chest x-ray was unremarkable. SIGNIFICANT LABORATORY DATA: WBC 8.5, hemoglobin 14.3, platelets 150. Sodium 141, potassium 4.6, BU N 20, creatinine 0.84, calcium 9.0, and lactic acid 1.4. Cardiac enzymes negative. LFT normal. Blo od culture negative. DISCHARGE MEDICATIONS: Fosamax 70 mg every 7 days, aspirin 325 mg p.o. daily, Tenormin 25 mg p.o. da demarco, Lipitor 80 mg p.o. daily, Symbicort one puff inhalation b.i.d., calcium with vitamin D 1 tablet p.o. daily, Omnicef 300 mg twice daily for 5 days, Plavix 75 mg p.o. daily, Evolocumab 140 mg subcu a s directed, Pepcid 20 mg p.o. b.i.d., Flonase nasal spray daily, Lasix 20 mg p.o. daily, Mucinex 600 mg twice daily, Atrovent 2 puffs q.6 hourly, lisinopril 10 mg p.o. daily, prednisone 40 mg p.o. daily for 5 days, then 20 mg p.o. daily for 5 days, then 10 mg p.o. daily for 5 days, and then stop, Jluis roselyn inhaler 2 puffs q.6 hourly p.r.n. CONTRAINDICATIONS: None. CODE STATUS: FULL CODE. INPATIENT CONSULTANTS: None. ALLERGIES: No known drug allergy. DISCHARGE PLAN: Post hospital, patient will follow up with primary care physician in 1 week. HOSPITAL COURSE: A 67-year-old female who was admitted by Dr. Perla Vargas. Please see his H&P for further details. This patient was mainly admitted to the hospital for increasing shortness of br eath. She has COPD and ongoing tobacco abuse disorder. This patient was not improving with her home medication and that is why she required admission and she was hypoxic while in hospital. She was jolynn ated optimally with steroids, empiric antibiotic therapy as well as respiratory therapy. The patient 's condition was improved. Her COPD was under control, but when we tried to walk her outside and jus t saw that her oxygen saturation was dropping below 88% and she was qualifying for home oxygen therap y. This is a new diagnosis for respiratory failure. The patient is otherwise stable from chronic obstructive pulmonary disease perspective. She has unde rlying sinus problem and that is why we advised her to follow up with ENT after discharge. With help of director of casework services, we are arranging home oxygen for her before discharge. All new medication prescrip tion will be sent to her pharmacy. Overall, the patient is medically stable for discharge today.
[2017-07-18 17:43] VITALS: BP 136/75; TEMP 98.1
== END 2017-07-18 17:38 | disposition home or self-care (01) | DRG 189 ==
LOC: SCSER 08:45 → T4-A 09:50
PROVIDERS: ADMIT Internal Medicine; ATTEND Internal Medicine
DX: J96.21 Acute and chronic respiratory failure with hypoxia (principal); J44.1 Chronic obstructive pulmonary disease with (acute) exacerbation; I10 Essential (primary) hypertension; I25.10 Atherosclerotic heart disease of native coronary artery without angina pectoris; I25.2 Old myocardial infarction; Z95.5 Presence of coronary angioplasty implant and graft; F10.21 Alcohol dependence, in remission; F17.210 Nicotine dependence, cigarettes, uncomplicated; J32.9 Chronic sinusitis, unspecified; E66.9 Obesity, unspecified; Z68.31 Body mass index [BMI] 31.0-31.9, adult; Z79.01 Long term (current) use of anticoagulants; Z79.82 Long term (current) use of aspirin; Z79.51 Long term (current) use of inhaled steroids
CPT/HCPCS: 36415; 71045; 80048; 80053; 82553; 83605; 83690; 83880; 84484; 85025; 87040; 87633; 87798; 93005; 94640; 94664; 96374; A4216; J0696; J1644; J2920; J2930; J7620